=== PATIENT | female | born 1945 | race Caucasian/White ===

== ENCOUNTER → 2019-02-08 | Outpatient (CLI) | payer MEDICARE ==
--- NOTE | 2019-02-08 14:05 | Diagnostic Imaging Report ---
CLINICAL INDICATION: Patient with back pain. Patient has history of L1 compression fracture. Abnormal x-ray. EXAM: MRI of the thoracic spine performed without IV contrast. Sequences include sagittal T2, sagittal T1, sagittal T2 fat-sat, axial T2, and axial T1. COMPARISON: None. FINDINGS: The thoracic spinal cord has normal cord caliber with no abnormal signal. There is prominent cortical defect involving the anterior mid inferior endplate of the T12 vertebra. There is heterogeneous signal within it with the appearance of a large Schmorl's node. There is peripheral low T1 and mixed high/low T2 signal adjacent to this area. The cortical margins of this area are difficult to accurately delineate on this MRI exam. There is also low T1/T2 signal within the T12-L1 intervertebral region. There is a compression deformity of the L1 vertebra with low signal within it which may represent sclerosis or kyphoplasty changes. Vacuum disc changes may also be considered. There is anterior wedge deformity involving the T12 vertebra. There is a small retropulsed fragment involving the superior and posterior aspect of the L1 vertebra which contributes to moderate central canal narrowing in addition to the facet arthropathy and ligamentum flavum buckling at the T12-L1 level. There is a chronic compression deformity involving the upper T4 endplate. There are multiple small chronic Schmorl's nodes seen throughout the mid lower thoracic spine. The remainder of the thoracic vertebra have normal signal. There is mildly hypertrophic spurs seen throughout the thoracic spine and facet arthropathy. Besides the T12-L1 level, the remainder of the thoracic spine shows no significant central canal or neural foramen narrowing. There is right curvature of the thoracic spine. There is incompletely imaged left renal cyst. There is no significant paraspinal soft tissue abnormality. IMPRESSION: 1: There is a compression deformity of the T12 vertebra with prominent superimposed compression deformity involving the inferior endplate, which is of unknown age. There is mixed signal involving this area. This may represent a large Schmorl's node. A component of acute/subacute fracture upon a chronic fracture cannot be excluded. Comparison to prior lumbar MRI and CT scans would better evaluate. If none are available, then CT scan of the thoracolumbar spine would help better delineate the bony details of this area. 2: There is a chronic L1 compression fracture deformity with low signal within it. Clinical correlation for prior kyphoplasty changes in this area. There is a small retropulsed fragment involving the upper posterior L1 vertebra which contributes to moderate central canal narrowing at the T12-L1 level. 3: There is low signal within the T12-L1 intervertebral region or upper L1 vertebral body area. Unknown if this represents kyphoplasty material versus vacuum disc changes. 4: Thoracic spine degenerative disease, as described above. Dictated by: Dictated on workstation # [id number]
== END ==
LOC: RAD 10:33
PROVIDERS: ATTEND Family Medicine
DX: M48.54XA Collapsed vertebra, not elsewhere classified, thoracic region, initial encounter for fracture (principal); M48.56XA Collapsed vertebra, not elsewhere classified, lumbar region, initial encounter for fracture; M48.05 Spinal stenosis, thoracolumbar region; M51.44 Schmorl's nodes, thoracic region; M48.061 Spinal stenosis, lumbar region without neurogenic claudication; M46.86 Other specified inflammatory spondylopathies, lumbar region; M46.84 Other specified inflammatory spondylopathies, thoracic region; N28.1 Cyst of kidney, acquired; Z98.890 Other specified postprocedural states
CPT/HCPCS: 72146

== ENCOUNTER 2019-07-05 12:59 | Emergency (ER) | payer MEDICARE ==
[~2019-07-05] VITALS: Ht 170.2 cm; Wt 90.7 kg
--- NOTE | 2019-07-05 14:18 | ED Back Pain ---
General Chief Complaint: Back Problems Stated Complaint: SOB,LT SIDE PAIN Nursing Triage Note: BACK PAIN AND INTERMITTENT SHORTNESS OF BREATH. SENT BY DR. GONZALEZ TO OUTPT FOR A CT SCAN FOR A POSSIBLE PE BUT PTS OUTPATIENT GFR IS 25. PT WAS SENT TO ER. Nursing Sepsis Screen: No Definite Risk Source of Information: Patient, Family Exam Limitations: No Limitations History of Present Illness Date Seen by Provider: Jul 05, 2019 Time Seen by Provider: 14:13 Initial Comments Patient presents with a few days of pain under her left shoulder blade that radiates around to her left side of her chest. Worse with occasional deep breaths, although not all breathing hurts. Denies shortness of air or cough. Patient on home O2 with chronic lung disease, takes Eliquis twice a day as well as a baby aspirin. Denies history of DVT or PE. Seen by primary care physician a couple days ago and had a chest x-ray as well as some blood work done and today was ordered to have a CT angiogram to rule out PE, evidently to elevated d-dimer. Patient was declined have CT with contrast due to poor kidney function and a low GFR. Patient sent to the ER for further evaluation. Was told she could get IV fluids and then get the study done afterwards. Location: [facility] Allergies and Home Medications Allergies Coded Allergies: No Known Drug Allergies (Unverified , 07/05/19) Patient Home Medication List Home Medication List Reviewed: Yes Review of Systems Constitutional: No dizziness, No fever, No malaise, No weakness Respiratory: No cough, No dyspnea on exertion, No hemoptysis, No orthopnea, No phlegm, No short of breath, No stridor, No wheezing Cardiovascular: see HPI; No chest pain, No palpitations, No syncope, No vascular heart diseas Musculoskeletal: back pain (left upper back radiating to side of left chest along rib margin line), muscle pain; No muscle weakness, No neck pain Past Wucetqx-Irtbms-Kjfgin Hx Past Med/Social Hx: Reviewed Nursing Past Med/Soc Hx Patient Social History Alcohol Use: Denies Use Recreational Drug Use: No Smoking Status: Former Smoker Type Used: Cigarettes 2nd Hand Smoke Exposure: No Recent Foreign Travel: No Contact w/Someone Who Travel: No Recent Infectious Disease Expo: No Recent Hopitalizations: No Physical Abuse: No Sexual Abuse: No Mistreated: No Fear: No Seasonal Allergies Seasonal Allergies: No Past Medical History Surgeries: Yes (L1 SURGERY) Gallbladder, Lumpectomy, Orthopedic Respiratory: Yes COPD, Emphysema Cardiac: Yes Atrial Fibrillation, Coronary Artery Disease, Hypertension, Irregular Heartbeat Neurological: Yes Stroke Gastrointestinal: No Arthritis, Back Injury, Chronic Back Pain Endocrine: Yes Diabetes, Non-Insulin dep HEENT: No Cancer: No Psychosocial: No Integumentary: No Blood Disorders: Yes Physical Exam Vital Signs Vital Signs - First Documented 07/05/19 07/05/19 13:41 15:49 Temp 97.4 Pulse 81 Resp 18 B/P (MAP) 142/48 (79) Pulse Ox 99 O2 Delivery Room Air Capillary Refill : Less Than 3 Seconds Height, Weight, BMI Height: 5'7.00" Weight: 200lbs. oz. 90.760029pi; BMI Method:Stated General Appearance: No Apparent Distress, WD/WN Neck: Full Range of Motion, Normal Inspection, Non Tender, Supple Cardiovascular: Regular Rate, Rhythm, No Edema, No Gallop, No JVD, Normal Peripheral Pulses Respiratory: Chest Non Tender, Lungs Clear, Normal Breath Sounds, No Accessory Muscle Use, No Respiratory Distress Gastrointestinal: Non Tender, Soft Back: Normal Inspection, No Vertebral Tenderness, Muscle Spasm (and tenderness left thoracic paraspinal ms T4-6) Extremity: Normal Capillary Refill, Normal Range of Motion, No Calf Tenderness, No Pedal Edema; No Calf Tenderness, No Pedal Edema, No Slow Capillary Refill, No Swelling Neurologic/Psychiatric: Alert, Oriented x3 Skin: Normal Color, Warm/Dry; No Ecchymosis, No Erythema Progress/Results/Core Measures Results/Orders Lab Results Laboratory Tests Test 07/05/19 14:16 Range/Units White Blood Count 11.9 H 4.3-11.0 10^3/uL Red Blood Count 3.78 L 4.35-5.85 10^6/uL Hemoglobin 8.9 L 11.5-16.0 G/DL Hematocrit 30 L 35-52 % Mean Corpuscular Volume 80 80-99 FL Mean Corpuscular Hemoglobin 24 L 25-34 PG Mean Corpuscular Hemoglobin Concent 30 L 32-36 G/DL Red Cell Distribution Width 15.8 H 10.0-14.5 % Platelet Count 459 H 130-400 10^3/uL Mean Platelet Volume 8.4 7.4-10.4 FL Neutrophils (%) (Auto) 76 H 42-75 % Lymphocytes (%) (Auto) 14 12-44 % Monocytes (%) (Auto) 9 0-12 % Eosinophils (%) (Auto) 1 0-10 % Basophils (%) (Auto) 0 0-10 % Neutrophils # (Auto) 9.0 H 1.8-7.8 X 10^3 Lymphocytes # (Auto) 1.6 1.0-4.0 X 10^3 Monocytes # (Auto) 1.1 H 0.0-1.0 X 10^3 Eosinophils # (Auto) 0.1 0.0-0.3 10^3/uL Basophils # (Auto) 0.0 0.0-0.1 10^3/uL D-Dimer 0.67 H 0.00-0.49 UG/ML Sodium Level 143 135-145 MMOL/L Potassium Level 4.3 3.6-5.0 MMOL/L Chloride Level 97 L 98-107 MMOL/L Carbon Dioxide Level 34 H 21-32 MMOL/L Anion Gap 12 5-14 MMOL/L Blood Urea Nitrogen 33 H 7-18 MG/DL Creatinine 1.95 H 0.60-1.30 MG/DL Estimat Glomerular Filtration Rate 25 BUN/Creatinine Ratio 17 Glucose Level 180 H 70-105 MG/DL Calcium Level 9.8 8.5-10.1 MG/DL Corrected Calcium 9.9 8.5-10.1 MG/DL Total Bilirubin 0.2 0.1-1.0 MG/DL Aspartate Amino Transf (AST/SGOT) 9 5-34 U/L Alanine Aminotransferase (ALT/SGPT) 7 0-55 U/L Alkaline Phosphatase 77 40-136 U/L Troponin I < 0.30 <0.30 NG/ML Total Protein 6.9 6.4-8.2 GM/DL Albumin 3.9 3.2-4.5 GM/DL My Orders Orders - JED WALLS DO Fibrin Degradation Products (07/05/19 14:11) Ed Iv/Invasive Line Start (07/05/19 14:11) Cbc With Automated Diff (07/05/19 14:11) Comprehensive Metabolic Panel (07/05/19 14:11) Troponin I (07/05/19 14:11) Chest 1 View Ap/Pa Only (07/05/19 14:11) Ekg Tracing (07/05/19 14:11) Vital Signs/I&O 07/05/19 07/05/19 13:41 15:49 Temp 97.4 98.3 Pulse 81 82 Resp 18 16 B/P (MAP) 142/48 (79) 147/56 (86) Pulse Ox 99 99 O2 Delivery Room Air Blood Pressure Mean: 79 Progress Progress Note : Progress Note Patient awake and alert and in no distress. Denies chest pain at rest, only with deep breath or certain movements. Denies any shortness of air. Patient without lower extremity pain, swelling our clinical suspicion of DVT. Currently anticoagulated with daily Eliquis and a baby aspirin. ECG with no evidence or suspicion typical of a PE. CXR with no acute changes....old anterior rib fx's. Initial ECG Impression Date: Jul 05, 2019 Initial ECG Impression Time: 14:15 Initial ECG Rhythm: Normal Sinus Initial ECG Intervals: Normal Initial ECG Impression: Normal Diagnostic Imaging Diagonstic Imaging: Xray Plain Films/CT/US/NM/MRI: chest Comments MPRESSION: 1. There is no evidence for an acute cardiopulmonary abnormality. 2. 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 Reviewed: Reviewed by Me Departure Communication (PCP) @ 1535h discussed w PCP, Dr Heri Gonzalez... explained low clinical index of suspicion, not having SOA of any kind, O2 sats are 100% on baseline home O2. Also ECG without suspicious change. Patients pain seems primarily musculoskeletal and originating in her thoracic scapular area w radiation to her lateral chest wall. Currently anticoagulated and if she did have a clot she is on appropriate treatment. Unable to do a CT angio because of poor GFR. Would have to transfer to another facility to do a VQ, but may have inconclusive results and no treatment changes would be likely. Also pain on left chest wall is in area of prior multiple rib fx's ...supported by plain CXR. no acute changes noted. He concurs w reasoning. Will send pt home. To continue current medication and f/u if worse. Impression Primary Impression: Back strain of thoracic region Qualified Codes: S29.019A - Strain of muscle and tendon of unspecified wall of thorax, initial encounter Disposition: 01 HOME, SELF-CARE Condition: Stable Departure-Patient Inst. Decision time for Depature: 15:40 Referrals: HERI GONZALEZ MD (PCP/Family) Primary Care Physician Patient Instructions: Upper Back Pain (DC) JED WALLS DO Jul 05, 2019 14:17
[2019-07-05 14:27] LABS: BASOPHILS % (AUTO) 0 % (0-10); EOSINOPHILS % (AUTO) 1 % (0-10); HEMATOCRIT 30 % (35-52); HEMOGLOBIN 8.9 G/DL (11.5-16.0); LYMPHOCYTES % (AUTO) 14 % (12-44); MEAN CORPUSCULAR HEMOGLOBIN 24 PG (25-34); MEAN CORPUSCULAR HGB CONC 30 G/DL (32-36); MEAN CORPUSCULAR VOLUME 80 FL (80-99); MEAN PLATELET VOLUME 8.4 FL (7.4-10.4); MONOCYTES % (AUTO) 9 % (0-12); NEUTROPHILS % (AUTO) 76 % (42-75); PLATELET COUNT 459 10^3/uL (130-400); RED CELL DISTRIBUTION WIDTH 15.8 % (10.0-14.5); WHITE BLOOD COUNT 11.9 10^3/uL (4.3-11.0)
[2019-07-05 14:28] LABS: EOSINOPHILS # (AUTO) 0.1 10^3/uL (0.0-0.3); LYMPHOCYTES # (AUTO) 1.6 X 10^3 (1.0-4.0); MONOCYTES # (AUTO) 1.1 X 10^3 (0.0-1.0)
--- NOTE | 2019-07-05 14:44 | Diagnostic Imaging Report ---
EXAMINATION: PA Chest at 2:07 p.m. INDICATION: Back pain. COMPARISON: There are no prior studies available for comparison. FINDINGS: The heart size is at the upper limits of normal. The lungs are clear. There is no evidence for failure, pneumonia, or for a pleural effusion. The aorta does not appear to be abnormally dilated, and the mediastinum is not widened. There are multiple healed displaced fractures on the left. There is no acute bony abnormality identified. There is also severe degenerative disease involving both glenohumeral joints. IMPRESSION: 1. There is no evidence for an acute cardiopulmonary abnormality. 2. 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 Dictated by: Dictated on workstation # [id number]
[2019-07-05 14:59] LABS: ALANINE AMINOTRANSFERASE 7 U/L (0-55); ALKALINE PHOSPHATASE 77 U/L (40-136); BILIRUBIN,TOTAL 0.2 MG/DL (0.1-1.0); BUN/CREATININE RATIO 17; CALCIUM 9.8 MG/DL (8.5-10.1); CARBON DIOXIDE 34 MMOL/L (21-32); CHLORIDE 97 MMOL/L (98-107); CREATININE SERUM 1.95 MG/DL (0.60-1.30); GFR ESTIMATED 25; GLUCOSE 180 MG/DL (70-105); POTASSIUM 4.3 MMOL/L (3.6-5.0); SODIUM 143 MMOL/L (135-145)
[2019-07-05 15:00] LABS: ALBUMIN 3.9 GM/DL (3.2-4.5); TOTAL PROTEIN 6.9 GM/DL (6.4-8.2)
[2019-07-05 15:49] VITALS: BP 147/56
== END 2019-07-05 15:50 | disposition home or self-care (01) ==
LOC: EDUNIT# 12:59 → ER FS 13:01
DX: S29.012A Strain of muscle and tendon of back wall of thorax, initial encounter (principal); J43.9 Emphysema, unspecified; I48.91 Unspecified atrial fibrillation; I25.10 Atherosclerotic heart disease of native coronary artery without angina pectoris; I10 Essential (primary) hypertension; E11.9 Type 2 diabetes mellitus without complications; Z86.73 Personal history of transient ischemic attack (TIA), and cerebral infarction without residual deficits; Z87.891 Personal history of nicotine dependence; Z99.81 Dependence on supplemental oxygen; Z79.01 Long term (current) use of anticoagulants; Z79.82 Long term (current) use of aspirin; X58.XXXA Exposure to other specified factors, initial encounter
CPT/HCPCS: 36415; 71045; 80053; 84484; 85025; 85379; 93005